=== PATIENT | female | born 1950 | race Caucasian/White ===

== ENCOUNTER 2018-03-02 07:49 | Day surgery (SDC) | payer MEDICARE ==
[~2018-03-02] VITALS: Ht 167.6 cm; Wt 181.4 kg
[~2018-03-02 07:49] MED LIST: ALBUTERO1; ARTIFI TEAR1 OU; ARTIFIC TEAR; BUSPAR10 M1 PO; COMBIVENT RESPIMAT IN; CRESTOR10 MG PO; FLUOXETINE40 MG PO; FUROSEMIDE20 MG PO; HYDROCO/APAP1 TA9 PO; LIPITOR20 M1 PO; OSTEO BI-FLE PO; PREVACID30 M2 PO; SINGULAIR10 MG PO; TUMS500 MG PO; VITAMIN D32000 UNIT PO; XANAX0.25 MG PO
[2018-03-02 10:44] VITALS: BP 103/56
== END 2018-03-02 11:01 | disposition home or self-care (01) ==
LOC: ENDO 07:49
PROVIDERS: ATTEND Surgery
PROC: 0DJD8ZZ Inspection of Lower Intestinal Tract, Via Natural or Artificial Opening Endoscopic (ICD-10-PCS; principal; 2018-03-02)
DX: Z12.11 Encounter for screening for malignant neoplasm of colon (principal); Z80.0 Family history of malignant neoplasm of digestive organs

== ENCOUNTER 2018-12-19 13:00 | Outpatient (RCR) | payer MEDICARE | END 2018-12-19 14:00 | disposition home or self-care (01) | LOC: PT 13:00 | PROVIDERS: ATTEND Nurse Practitioner Family | DX: M19.90 Unspecified osteoarthritis, unspecified site (principal); M25.562 Pain in left knee; J98.4 Other disorders of lung; E66.9 Obesity, unspecified ==